=== PATIENT | male | born 1980 | race Caucasian/White ===

== ENCOUNTER 2018-06-24 17:56 | Emergency (ER) | payer SELFPAY ==
[~2018-06-24] VITALS: Ht 170.1 cm; Wt 77.6 kg
[~2018-06-24 17:56] MED LIST: CYCLOBENZAPRINE5 M3 PO; MOTRIN800 MG PO; Motrin,Rufen800 MG PO; PREDNISONE10 MG PO; Zofran4 MG PO
[2018-06-24 18:33] LABS: BASO # 0.1 10*3/uL (0.0-0.1); BASO % 1.1 % (0.0-1.0); EOS # 0.1 10*3/uL (0.0-0.4); EOS % 2.3 % (1.0-4.0); HEMATOCRIT 39.4 % (42.0-52.0); HEMOGLOBIN 13.6 g/dl (14.0-18.0); LYMPH # 1.9 10*3/uL (1.3-4.4); LYMPH % 35.3 % (27.0-41.0); MEAN CELL VOLUME 88.1 fl (80.0-94.0); MEAN CORPUSCULAR HGB 30.4 pg (27.0-31.0); MEAN CORPUSCULAR HGB CONC 34.5 g/dl (33.0-37.0); MEAN PLATELET VOLUME 9.9 fl (9.6-12.3); MONO # 0.6 10*3/uL (0.1-1.0); MONO % 10.8 % (3.0-9.0); NEUT # 2.7 10*3/uL (2.3-7.9); NEUT % 50.3 % (47.0-73.0); PLATELET COUNT AUTOMATED 193 10*3/uL (130-400); RED BLOOD COUNT 4.47 10*6/uL (4.50-5.90); RED CELL DISTRI WIDTH 13.2 % (0-14.5); WHITE BLOOD COUNT 5.3 10*3/uL (4.8-10.8)
[2018-06-24 18:47] LABS: ALBUMIN 3.5 gm/dl (3.1-4.5); ALKALINE PHOSPHATASE 72 U/L (45-117); BUN 14 mg/dl (7-24); CHLORIDE 106 mmol/L (98-107); CREATININE 1.36 mg/dL (0.70-1.30); POTASSIUM 3.4 mmol/L (3.5-5.1); SGOT/AST 18 IU/L (3-35); SGPT/ALT 27 U/L (12-78); SODIUM 142 mmol/L (136-145); TOTAL PROTEIN 6.6 gm/dL (6.4-8.2)
[2018-06-24] MEDS ORDERED: CEPHALEXIN500 M1 PO (20:19)
== END 2018-06-24 20:24 | disposition home or self-care (01) ==
LOC: ED 17:56
PROVIDERS: Nurse Practitioner Family
DX: L03.115 Cellulitis of right lower limb (principal); Z90.49 Acquired absence of other specified parts of digestive tract; Z98.890 Other specified postprocedural states

== ENCOUNTER 2018-09-10 09:07 | Emergency (ER) | payer BC ==
[~2018-09-10] VITALS: Wt 81.6 kg
[~2018-09-10 09:07] MED LIST changes: +CEPHALEXIN500 M1 PO
[2018-09-10] MEDS ORDERED: TOBRADEX 0.1%-0.5 ML OPH (09:25)
== END 2018-09-10 10:25 | disposition home or self-care (01) ==
LOC: ED 09:07
DX: H10.33 Unspecified acute conjunctivitis, bilateral (principal); Z79.2 Long term (current) use of antibiotics; Z79.899 Other long term (current) drug therapy

== ENCOUNTER 2019-12-18 21:12 | Emergency (ER) | payer BC ==
[~2019-12-18] VITALS: Ht 170.1 cm; Wt 85.7 kg
[~2019-12-18 21:12] MED LIST changes: +TOBRADEX 0.1%-0.5 ML OPH
== END 2019-12-18 22:12 | disposition home or self-care (01) ==
LOC: ED 21:12
DX: T15.91XA Foreign body on external eye, part unspecified, right eye, initial encounter (principal); J45.909 Unspecified asthma, uncomplicated; F17.200 Nicotine dependence, unspecified, uncomplicated; Z79.2 Long term (current) use of antibiotics; Z79.899 Other long term (current) drug therapy; Z90.49 Acquired absence of other specified parts of digestive tract; X58.XXXA Exposure to other specified factors, initial encounter; Y93.89 Activity, other specified; Y92.69 Other specified industrial and construction area as the place of occurrence of the external cause; Y99.8 Other external cause status

== ENCOUNTER 2020-01-29 07:46 | Emergency (ER) | payer BC ==
[~2020-01-29] VITALS: Ht 170.1 cm; Wt 84.4 kg
[2020-01-29 09:06] LABS: BILIRUBIN NEGATIVE (NEGATIVE); CLARITY SL CLOUDY (CLEAR); COLOR YELLOW (YELLOW); GLUCOSE NEGATIVE (NEGATIVE); KETONE NEGATIVE (NEGATIVE)
[2020-01-29 09:07] LABS: BACTERIA TRACE; BLOOD NEGATIVE (NEGATIVE); EPITHELIAL CELLS 0-2; LEUKO ESTERASE NEGATIVE (NEGATIVE); MUCOUS 3+; NITRITE NEGATIVE (NEGATIVE); RBC 0-2 rbc/hpf (0-2); UROBILINOGEN 0.2 E.U./dl (0.2-1.0); WBC 0-2 wbc/hpf (0-5)
[2020-01-29] MEDS ORDERED: CYCLOBENZAPRINE10 MG PO (09:16)
[2020-01-29] MEDS ORDERED: NAPROSYN500 MG PO (09:16)
[2020-01-29] MEDS ORDERED: TYLENOL325 M1 PO (09:16)
== END 2020-01-29 09:16 | disposition home or self-care (01) ==
LOC: ED 07:46
PROVIDERS: Emergency Medicine
DX: M54.5 Low back pain (principal); R05 Cough; J45.909 Unspecified asthma, uncomplicated; F17.200 Nicotine dependence, unspecified, uncomplicated; Z79.2 Long term (current) use of antibiotics; Z79.899 Other long term (current) drug therapy; Z90.49 Acquired absence of other specified parts of digestive tract

== ENCOUNTER 2020-06-10 06:01 | Emergency (ER) | payer BC ==
[~2020-06-10] VITALS: Ht 170.1 cm; Wt 86.2 kg
[~2020-06-10 06:01] MED LIST changes: +CYCLOBENZAPRINE10 MG PO; +NAPROSYN500 MG PO; +TYLENOL325 M1 PO
[2020-06-10] MEDS ORDERED: IBUPROFEN600 MG PO (06:28)
[2020-06-10] MEDS ORDERED: CLINDAMYCIN HC300 MG PO (06:28)
== END 2020-06-10 06:43 | disposition home or self-care (01) ==
LOC: ED 06:01
DX: K04.7 Periapical abscess without sinus (principal); K08.89 Other specified disorders of teeth and supporting structures

== ENCOUNTER 2021-04-11 15:59 | Emergency (ER) | payer BC ==
[~2021-04-11] VITALS: Ht 170.1 cm; Wt 90.7 kg
[~2021-04-11 15:59] MED LIST changes: +CLINDAMYCIN HC300 MG PO; +IBUPROFEN600 MG PO
== END 2021-04-11 19:23 | disposition home or self-care (01) ==
LOC: ED 15:59
DX: S93.402A Sprain of unspecified ligament of left ankle, initial encounter (principal); Z79.899 Other long term (current) drug therapy; Z79.2 Long term (current) use of antibiotics; Z90.49 Acquired absence of other specified parts of digestive tract; X50.1XXA Overexertion from prolonged static or awkward postures, initial encounter; Y93.89 Activity, other specified; Y92.89 Other specified places as the place of occurrence of the external cause; Y99.8 Other external cause status

== ENCOUNTER 2022-11-04 22:15 | Emergency (ER) | payer BC ==
[~2022-11-04] VITALS: Ht 170.1 cm; Wt 88.0 kg
== END 2022-11-04 22:58 | disposition home or self-care (01) ==
LOC: ED 22:15
DX: S05.02XA Injury of conjunctiva and corneal abrasion without foreign body, left eye, initial encounter (principal); J45.909 Unspecified asthma, uncomplicated; Z90.89 Acquired absence of other organs; Z90.49 Acquired absence of other specified parts of digestive tract; X58.XXXA Exposure to other specified factors, initial encounter; Y93.89 Activity, other specified; Y92.009 Unspecified place in unspecified non-institutional (private) residence as the place of occurrence of the external cause; Y99.8 Other external cause status

== ENCOUNTER 2024-10-16 17:40 | Emergency (ER) | payer BC ==
[~2024-10-16] VITALS: Ht 170.1 cm; Wt 88.9 kg
[2024-10-16] MEDS ORDERED: ACETAMINOPHEN 325 MG TAB PO ONE (18:05)
[2024-10-16] MEDS ORDERED: Ondansetron Hydrochloride 4 MG/2 ML VIAL IV ONE (18:05)
[2024-10-16] MEDS ORDERED: SODIUM CHLORIDE 0.9% 1,000 ML IV ONE (18:05)
[2024-10-16 18:19] LABS: BASO # 0.1 10*3/uL (0.0-0.1); BASO % 0.9 % (0.0-1.0); EOS # 0.1 10*3/uL (0.0-0.4); EOS % 0.6 % (1.0-4.0); HEMATOCRIT 44.4 % (42.0-52.0); MEAN CELL VOLUME 88.3 fl (80.0-94.0); MEAN CORPUSCULAR HGB 30.2 pg (27.0-31.0); MEAN CORPUSCULAR HGB CONC 34.2 g/dl (33.0-37.0); MEAN PLATELET VOLUME 9.3 fl (9.6-12.3); MONO # 0.9 10*3/uL (0.1-1.0); MONO % 11.2 % (3.0-9.0); NEUT # 6.2 10*3/uL (2.3-7.9); NEUT % 78.1 % (47.0-73.0); PLATELET COUNT AUTOMATED 222 10*3/uL (130-400); RED BLOOD COUNT 5.03 10*6/uL (4.50-5.90); RED CELL DISTRI WIDTH 12.5 % (0-14.5)
[2024-10-16 18:40] LABS: ALKALINE PHOSPHATASE 76 U/L (46-116); BUN 12 mg/dl (9-23); CHLORIDE 106 mmol/L (98-107); POTASSIUM 3.6 mmol/L (3.4-5.1); SGPT/ALT 16 U/L (5-49); TOTAL PROTEIN 6.8 gm/dL (6.0-8.0)
[2024-10-16] MEDS ORDERED: TAMIFLU 75MG CA75 MG PO (19:52)
[2024-10-16] MEDS ORDERED: Oseltamivir Phosphate 75 MG CAP PO ONE (19:55)
== END 2024-10-16 20:15 | disposition home or self-care (01) ==
LOC: ED 17:40
PROVIDERS: Nurse Practitioner Family
DX: J10.1 Influenza due to other identified influenza virus with other respiratory manifestations (principal); Z20.822 Contact with and (suspected) exposure to COVID-19; F17.210 Nicotine dependence, cigarettes, uncomplicated; Z90.49 Acquired absence of other specified parts of digestive tract